=== PATIENT | male | born 1960 | race Caucasian/White ===

== ENCOUNTER 2022-05-06 09:14 | Outpatient (CLI) | payer OTHER | END 2022-05-06 09:22 | disposition home or self-care (01) | LOC: LAB 09:14 | DX: E78.2 Mixed hyperlipidemia (principal); E03.9 Hypothyroidism, unspecified; D58.9 Hereditary hemolytic anemia, unspecified; I11.9 Hypertensive heart disease without heart failure ==

== ENCOUNTER 2023-02-14 08:09 | Outpatient (CLI) | payer OTHER | END 2023-02-14 08:16 | disposition home or self-care (01) | LOC: LAB 08:09 | DX: I11.9 Hypertensive heart disease without heart failure (principal); E78.2 Mixed hyperlipidemia; E03.9 Hypothyroidism, unspecified; D58.9 Hereditary hemolytic anemia, unspecified; D72.818 Other decreased white blood cell count; D69.59 Other secondary thrombocytopenia; D70.8 Other neutropenia ==

== ENCOUNTER 2023-02-16 08:56 | Outpatient (CLI) | payer OTHER | END 2023-02-16 08:57 | disposition home or self-care (01) | LOC: LAB 08:56 | DX: I11.9 Hypertensive heart disease without heart failure (principal); E78.2 Mixed hyperlipidemia; E03.4 Atrophy of thyroid (acquired); D58.8 Other specified hereditary hemolytic anemias ==

== ENCOUNTER 2023-10-05 08:38 | Outpatient (CLI) | payer OTHER ==
[2023-10-05 10:14] LABS: HEMATOCRIT 42.2 % (39.0-48.0); HEMOGLOBIN 14.5 g/dL (13-16.00); MEAN CELL VOLUME 93.3 fL (80.0-100.00); MEAN CORPUSCULAR HEMOGLOBIN 32.1 pg (27.00-32.0); MEAN CORPUSCULAR HGB CONC 34.4 g/dl (32.0-36.0); PLATELET COUNT 148 K/uL (150-450); RED BLOOD COUNT 4.53 M/uL (4.00-6.00); RED CELL DISTRIBUTION WIDTH 12.6 % (11.5-14.5)
[2023-10-05 10:42] LABS: ALBUMIN 3.5 gm/dL (3.4-5.0); BILIRUBIN TOTAL 2.31 mg/dL (0.3-1.2); CALCIUM 9.1 mg/dL (8.5-10.1); CREATININE SERUM 0.76 mg/dL (0.70-1.30); GFR 104.27; GLOBULINA 2.7 G/DL (2.4-3.5); POTASSIUM 3.87 mEq/L (3.5-5.1); TOTAL PROTEIN 6.2 gm/dL (6.4-8.2)
[2023-10-05 12:26] LABS: PLATELET ESTIMATE NORMAL (NORMAL)
[2023-10-08 08:10] LABS: BETA-2-MICROGLOBULINA 1.3 mg/L (0.6-2.4)
== END 2023-10-05 08:39 | disposition home or self-care (01) ==
LOC: LAB 08:38
DX: D72.818 Other decreased white blood cell count (principal); D69.59 Other secondary thrombocytopenia

== ENCOUNTER → 2023-11-06 08:32 | Outpatient (CLI) | payer OTHER ==
[2023-11-06 09:25] LABS: URINE APPEARANCE Clear; URINE BILIRRUBIN Negative (NEGATIVE); URINE BLOOD Negative; URINE COLOR Dark Yellow; URINE GLUCOSE Negative (NEGATIVE); URINE LEUKOCYTE Negative; URINE NITRATE Negative; URINE PROTEIN Negative (NEGATIVE)
[2023-11-06 09:28] LABS: URINE BACTERIA 17.6 uL (0.0-1933); URINE RBC 5.3 uL (0.0-20.8)
[2023-11-06 09:39] LABS: URINE EPITHELIAL CELLS 0.3 uL (0.0-38.8); URINE WBC 0.6 uL (0.0-23.2)
[2023-11-06 10:02] LABS: CALCIUM 9.3 mg/dL (8.5-10.1); CREATININE SERUM 0.77 mg/dL (0.70-1.30); GFR 102.71; POTASSIUM 4.13 mEq/L (3.5-5.1)
[2023-11-06 11:18] LABS: VITAMIN D3 25 HYDROXY 48.2 ng/ml (30-120)
== END | disposition home or self-care (01) ==
LOC: LAB 08:32
DX: E55.9 Vitamin D deficiency, unspecified (principal); D53.8 Other specified nutritional anemias

== ENCOUNTER 2024-07-23 08:53 | Outpatient (CLI) | payer OTHER ==
[2024-07-23 10:59] LABS: PH,URINE 6.5 (5.0-8.0); URINE APPEARANCE Clear; URINE BILIRRUBIN Negative (NEGATIVE); URINE BLOOD Negative; URINE COLOR Yellow; URINE GLUCOSE Negative (NEGATIVE); URINE KETONE Trace (NEGATIVE); URINE LEUKOCYTE Trace; URINE NITRATE Negative; URINE PROTEIN Negative (NEGATIVE)
[2024-07-23 11:03] LABS: URINE RBC 2.4 uL (0.0-20.8)
[2024-07-23 11:19] LABS: HEMATOCRIT 45.1 % (39.0-48.0); HEMOGLOBIN 15.7 g/dL (13-16.00); MEAN CELL VOLUME 94.4 fL (80.0-100.00); MEAN CORPUSCULAR HEMOGLOBIN 32.9 pg (27.00-32.0); MEAN CORPUSCULAR HGB CONC 34.9 g/dl (32.0-36.0); PLATELET COUNT 162 K/uL (150-450); RED BLOOD COUNT 4.78 M/uL (4.00-6.00); RED CELL DISTRIBUTION WIDTH 13.3 % (11.5-14.5)
[2024-07-23 11:32] LABS: ALBUMIN 3.6 gm/dL (3.4-5.0); BILIRUBIN TOTAL 2.61 mg/dL (0.3-1.2); CALCIUM 8.9 mg/dL (8.5-10.1); CHOL HDL RATIO 2.6 (0-5.0); CREATININE SERUM 0.78 mg/dL (0.70-1.30); GFR 100.85; GLOBULINA 2.5 G/DL (2.4-3.5); POTASSIUM 4.11 mEq/L (3.5-5.1); PROSTATIC SPECIFIC ANTIGEN 1.15 NG/ML (0.010-4.00); TOTAL PROTEIN 6.1 gm/dL (6.4-8.2)
[2024-07-23 11:44] LABS: URINE CAST 0.15 uL (0.0-1.40); URINE EPITHELIAL CELLS 0.6 uL (0.0-38.8); URINE WBC 0.9 uL (0.0-23.2)
== END 2024-07-23 08:59 | disposition home or self-care (01) ==
LOC: LAB 08:53
PROVIDERS: ATTEND Urology
DX: N40.1 Benign prostatic hyperplasia with lower urinary tract symptoms (principal); I10 Essential (primary) hypertension; E11.9 Type 2 diabetes mellitus without complications; E78.9 Disorder of lipoprotein metabolism, unspecified; N39.0 Urinary tract infection, site not specified; I11.9 Hypertensive heart disease without heart failure; Z12.11 Encounter for screening for malignant neoplasm of colon; C61 Malignant neoplasm of prostate

== ENCOUNTER 2025-08-09 09:09 | Outpatient (CLI) | payer OTHER ==
[2025-08-09 11:37] LABS: ALT/SGPT 33.0 U/L (12-78); AST/SGOT 17.0 U/L (15-37); BILIRUBIN TOTAL 1.57 mg/dL (0.3-1.2); BUN CREA RATIO 16.0 (7.0-25.0); CREATININE SERUM 0.89 mg/dL (0.70-1.30); GFR 86.33; GLOBULINA 3.0 G/DL (2.4-3.5); GLUCOSE FASTING 84.0 mg/dL (65-100); OSMOLALITY SERUM 283.0 MOSM/KG (275-295); T4 FREE 1.07 NG/ML (0.76-1.46); TSH 0.657 uIU/mL (0.358-3.74)
[2025-08-12 08:09] LABS: ESTRADIOL SERUM 41.1 pg/mL (7.6-42.6); LEUTEINIZING HORMONE 3.4 mIU/mL (1.7-8.6); PROLACTIN 14.9 ng/mL (3.6-25.2)
== END 2025-08-09 09:17 | disposition home or self-care (01) ==
LOC: LAB 09:09
PROVIDERS: ATTEND Urology
DX: E29.1 Testicular hypofunction (principal)